=== PATIENT | male | born 1985 | race Caucasian/White ===

== ENCOUNTER 2025-06-11 18:41 | Emergency (ER) | payer MEDICAID ==
[~2025-06-11] VITALS: Ht 177.8 cm; Wt 82.0 kg
[2025-06-11 18:48] VITALS: BP 118/64; PULSE 76; RESP 16; O2SAT 98
--- NOTE | 2025-06-11 19:57 | Physician Documentation ---
History of Present Illness ~ Chief Complaint: Hand pain Stated Complaint: BROKEN L HAND Time Seen by MD: 19:34 HPI Patient is seen today with complaints of pain of his left hand after he punched a dashboard yesterday. Patient complains of pain and swelling and has no other concern or complaint at this time. Medication Reconciliation Allergies: Coded Allergies: No Known Allergies (Unverified , 06/11/25) Review of Systems Constitutional: Denies: chills, fever, weakness Eyes: Denies: pain, blurred vision ENT: Denies: ear pain, nose pain, throat pain, mouth pain Respiratory: Denies: cough, shortness of breath Cardiovascular: Denies: chest pain, palpitations Gastrointestinal: Denies: abdominal pain, nausea, vomiting Genitourinary: Denies: burning, dysuria Male Genitalia: Denies: penile discharge, testicular pain Neurological: Denies: headache, dizziness Musculoskeletal: Denies: pain, swelling Integumentary: Denies: rash, lesions Allergic/Immunologic: Denies: hives, itching Hematologic/Lymphatic: Denies: no symptoms reported Psychiatric: Denies: depression, anxiety Physical Exam Vital Signs: Temperature: 97.7, Source: Temporal, Heart Rate: 76, Respiratory Rate: 16, BP: 118/64, Pulse Oximetry: 98, Weight: 82.000 Oxygen Flow Rate: 0 Physical Exam General: Awake and Alert, no acute distress. HEENT: Conjunctiva pink, Sclera clear, Mucus Membranes moist. Neck: Supple without masses and tenderness. Resp: Unlabored. Lungs clear to auscultation bilaterally. Heart: Regular Rate and rhythm, normal S1 and S2 without murmur, rub or gallop. Musculoskeletal: Patient on exam does have significant swelling and tenderness to palpation of the left hand especially on the ulnar aspect in the area of the distal 5th metacarpal. Patient is neurovascularly intact distally. Motor function intact distally. Strength decreased due to pain. Extremities: No cyanosis,clubbing or edema. Skin: Warm and Dry. Progress Results/Orders Results/Orders Orders - JANI MARTIN PAC Ortho Orders (06/11/25 ) Vital Signs 06/11/25 18:48 Temp 97.7 Pulse 76 Resp 16 B/P (MAP) 118/64 Pulse Ox 98 O2 Flow Rate 0 EKG/XRAY/CT/US/VASC/MRI Bone/Soft Tissue X-Ray (Ext.) : Additional Comment X-ray of the left hand interpreted by myself today shows acute displaced fracture of the left 5th metacarpal neck with apex dorsal deformity. Medical Decision Making Findings Patient is seen today with complaints of pain of his left hand after he punched a dashboard yesterday. Patient complains of pain and swelling and has no other concern or complaint at this time. Patient was placed in an ulnar gutter splint and will follow up with Orthopedics as soon as possible for further eval and treatment. Patient will return to ED with any worsening, concerning or changing symptoms. Patient will continue Tylenol as needed for symptomatic relief. Departure Disposition: HOME / SELF CARE / HOMELESS Impression: Primary Impression: Boxers fracture Qualified Codes: S62.339A - Displaced fracture of neck of unspecified metacarpal bone, initial encounter for closed fracture Condition: Improved Discharge Instructions: Fracture, Hand Additional Instructions: Patient was placed in an ulnar gutter splint and will follow up with Orthopedics as soon as possible for further eval and treatment. Patient will return to ED with any worsening, concerning or changing symptoms. Patient will continue Tylenol as needed for symptomatic relief. Referrals: NO PRIMARY CARE PROVIDER (PCP) Signature Scribe Signature: No scribe Attestation: No scribe JANI MARTIN PAC Jun 11, 2025 19:57
[2025-06-11 21:29] VITALS: TEMP 97.7
== END 2025-06-11 21:30 | disposition home or self-care (01) ==
LOC: ER 18:43
DX: S62.92XA Unspecified fracture of left hand, initial encounter for closed fracture (principal); X58.XXXA Exposure to other specified factors, initial encounter; Y93.89 Activity, other specified; Y92.89 Other specified places as the place of occurrence of the external cause; Y99.8 Other external cause status
CPT/HCPCS: 29125; 73130; 99283; A6446; A6449